=== PATIENT | male | born 1970 | race Caucasian/White ===

== ENCOUNTER 2018-09-04 18:02 | Emergency (ER) | payer OTHER ==
[2018-09-04] MEDS ORDERED: Bacitracin Oint 1 GM U/D Packet TOP ONE (19:40)
--- NOTE | 2018-09-04 20:50 | EDM.PDOC ---
ED HPI GENERAL MEDICAL PROBLEM - General Chief Complaint: Laceration Stated Complaint: CUT LEFT RING FINGER Time Seen by Provider: 09/04/18 19:40 Source of Information: Reports: Patient History Limitations: Reports: No Limitations - History of Present Illness INITIAL COMMENTS - FREE TEXT/NARRATIVE: chief complaint: cut ring finger, left This is a 48 year old male present to ER for care of laceration. He reports lives in [place], he has a cabin on [address], here for the weekend to open cabin. He was washing dishing, cut the end of his left ring finger. The wound was gaping and bleeding, washed wound out with soap and clean water, applied pressure and came to ER. 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) Left Finger-Ring Pain Score (Numeric/FACES): 4 - Related Data Allergies Allergy/AdvReac Type Severity Reaction Status Date / Time No Known Allergies Allergy Verified 09/04/18 19:55 Home Meds: Home Meds Lisinopril [Prinivil] 5 mg PO DAILY 09/04/18 [History] Past Medical History Cardiovascular History: Reports: High Cholesterol, Hypertension Genitourinary History: Reports: Other (See Below) Other Genitourinary History: prostatitist and epididemist Musculoskeletal History: Reports: Arthritis, Fracture, Other (See Below) Other Musculoskeletal History: right shoulder bone spur - Infectious Disease History Infectious Disease History: Reports: Chicken Pox, Influenza - Past Surgical History HEENT Surgical History: Reports: LASIK, Tonsillectomy Social & Family History - Tobacco Use Smoking Status *Q: Never Smoker - Caffeine Use Caffeine Use: Reports: Coffee - Alcohol Use Days Per Week of Alcohol Use: 2 Number of Drinks Per Day: 2 Total Drinks Per Week: 4 - Recreational Drug Use Recreational Drug Use: No - Living Situation & Occupation Living situation: Reports: Occupation: Employed (lives with his and 3 teenage children. 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[employer].) ED ROS GENERAL - Review of Systems Review Of Systems: See Below Constitutional: Reports: Other (left finger pain) Respiratory: Reports: No Symptoms Cardiovascular: Reports: No Symptoms Endocrine: Reports: No Symptoms Skin: Reports: Wound (laceration to left ring finger) Neurological: Reports: No Symptoms Psychiatric: Reports: No Symptoms Hematologic/Lymphatic: Reports: No Symptoms Immunologic: Reports: No Symptoms ED EXAM, SKIN/RASH Exam: See Below Exam Limited By: No Limitations General Appearance: Alert, WD/WN, Anxious Respiratory/Chest: No Respiratory Distress Extremities: Other (laceration noted to left ring finger) Neurological: Alert, Oriented Psychiatric: Normal Affect, Normal Mood, Anxious Skin: Warm, No Rash, Wound/Incision (laceration to palmar side of the left ring finger. gaping wound. scant bleeding noted.) Location, Skin: Palms (left ring finger tip) Characteristics: Linear Associated features: Warmth, Tenderness, Weeping ED SKIN PROCEDURES - Laceration/Wound Repair Left Distal Digit - 4th (Ring) Appearance: Subcutaneous, Linear, Clean Distal NVT: Neuro & Vascular Intact, No Tendon Injury Anesthetic Type: Local Local Anesthesia - Lidocaine (Xylocaine): 1% Plain Local Anesthetic Volume: 2cc Skin Prep: Chlorhexidine (Hibiciens), Saline Saline Irrigation (cc's): 25 Exploration/Debridement/Repair: Wound Explored Closed with: Sutures Suture Size: 4-0 # of Sutures: 9 Suture Type: Prolene, Interrupted, Simple Drain Placement: No Sterile Dressing Applied: Nurse Tetanus Status Addressed: Yes Complications: No Course - Vital Signs Last Recorded V/S: Last Vital Signs Temp 35.1 C L 09/04/18 20:00 Pulse 68 09/04/18 20:00 Resp 16 09/04/18 20:00 BP 160/85 H 09/04/18 20:00 Pulse Ox 96 09/04/18 20:00 - Orders/Labs/Meds Orders: Active Orders 24 hr Category Date Time Status DME for Discharge [COMM] Urgent Oth 09/04/18 20:45 Ordered Meds: Medications Discontinued Medications Generic Name Dose Route Start Last Admin Trade Name Freq PRN Reason Stop Dose Admin Bacitracin 1 dose 09/04/18 19:40 09/04/18 20:48 Bacitracin Oint 1 Gm TOP 09/04/18 19:41 1 dose ONETIME ONE Administration Lidocaine HCl 5 ml 09/04/18 19:40 09/04/18 20:48 Xylocaine-Mpf 1% INJECT 09/04/18 19:41 5 ml ONETIME ONE Administration Departure - Departure Time of Disposition: 20:46 Disposition: Home, Self-Care 01 Condition: Good Clinical Impression: Laceration of finger of left hand Qualifiers: Encounter type: initial encounter Finger: ring finger Damage to nail status: without damage Foreign body presence: without foreign body Qualified Code(s): S61.215A - Laceration without foreign body of left ring finger without damage to nail, initial encounter - Discharge Information *PRESCRIPTION DRUG MONITORING PROGRAM REVIEWED*: No *COPY OF PRESCRIPTION DRUG MONITORING REPORT IN PATIENT ELLA: No Instructions: Sutured Wound Care, [id number] Referrals: PCP,None [Primary Care Provider] - Forms: ED Department Discharge, ED Return to Work/School Form Care Plan Goals: Finger laceration. left hand. ring finger -wear finger splint with activities -Keflex 500mg by mouth two times a day for 7 days -Hydrocodone 5/325 mg by mouth every 3 to 4 hours as needed for pain #8 -may use over the counter Tylenol or Motrin for less severe pain -apply antibiotic ointment to laceration two times a day for 2 to3 days, then keep clean and dry Monitor for signs of infection, increased pain, fever, redness, foul discharge, swelling or not improved return to ER immediately for wound check Sutures removed in 10 days. - Problem List & Annotations (1) Laceration of finger of left hand SNOMED Code(s): 270745235 Code(s): S61.219A - LACERATION W/O FB OF UNSP FINGER W/O DAMAGE TO NAIL, INIT Status: Acute Priority: High Qualifiers: Encounter type: initial encounter Finger: ring finger Damage to nail status: without damage Foreign body presence: without foreign body Qualified Code(s): S61.215A - Laceration without foreign body of left ring finger without damage to nail, initial encounter - Problem List Review Problem List Initiated/Reviewed/Updated: Yes - My Orders Last 24 Hours: My Active Orders 09/04/18 20:45 DME for Discharge [COMM] Urgent - Assessment/Plan Last 24 Hours: My Active Orders 09/04/18 20:45 DME for Discharge [COMM] Urgent Plan: Finger laceration. left hand. ring finger -wear finger splint with activities -Keflex 500mg by mouth two times a day for 7 days -Hydrocodone 5/325 mg by mouth every 3 to 4 hours as needed for pain #8 -may use over the counter Tylenol or Motrin for less severe pain -apply antibiotic ointment to laceration two times a day for 2 to3 days, then keep clean and dry Monitor for signs of infection, increased pain, fever, redness, foul discharge, swelling or not improved return to ER immediately for wound check Sutures removed in 10 days.
== END 2018-09-04 21:09 | disposition home or self-care (01) ==
LOC: JP.ED 18:02
DX: S61.215A Laceration without foreign body of left ring finger without damage to nail, initial encounter (principal); I10 Essential (primary) hypertension; W45.8XXA Other foreign body or object entering through skin, initial encounter; Y93.G1 Activity, food preparation and clean up
CPT/HCPCS: 12001; 99282; J2001

== ENCOUNTER 2018-11-05 15:02 | Emergency (ER) | payer OTHER ==
--- NOTE | 2018-11-05 16:35 | CRLCR ---
INDICATION: Dyspnea TECHNIQUE: Chest 2 views. COMPARISON: None FINDINGS: Cardiovascular and mediastinum: Heart size and vasculature are normal in caliber and appearance. Mediastinum is within normal limits. Lungs and pleural spaces: Lungs are clear. No sign of infiltrate or mass. No sign of pleural effusion. No pneumothorax. Bones and soft tissues: No significant findings. IMPRESSION: No sign of acute disease. Dictated by Corrie Perry MD @ Nov 05 2018 4:32PM Signed by Dr. Corrie Perry @ Nov 05 2018 4:33PM
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
== END 2018-11-05 17:10 | disposition home or self-care (01) ==
LOC: JP.ED 15:02
DX: R07.89 Other chest pain (principal); E78.00 Pure hypercholesterolemia, unspecified; Z79.899 Other long term (current) drug therapy
CPT/HCPCS: 36415; 71046; 80053; 81001; 84484; 85025; 93005; 99285-25

== ENCOUNTER 2019-10-03 12:28 | Emergency (ER) | payer OTHER, BC ==
[2019-10-03] MEDS ORDERED: Bacitracin Oint 1 GM U/D Packet TOP ONE (12:30)
--- NOTE | 2019-10-03 13:08 | EDM.PDOC ---
ED HPI GENERAL MEDICAL PROBLEM - General Chief Complaint: Skin Complaint Stated Complaint: HOOK IN L THUMB Time Seen by Provider: 10/03/19 12:50 Source of Information: Reports: Patient History Limitations: Reports: No Limitations - History of Present Illness INITIAL COMMENTS - FREE TEXT/NARRATIVE: 49-year-old male with a miguelito of a treble hook embedded into the dorsal aspect of his left thumb. No other injury. Tetanus is current. Onset: Sudden Duration: Hour(s): (1 hour ago) Location: Reports: Upper Extremity, Left Associated Symptoms: Reports: No Other Symptoms - Related Data Allergies Allergy/AdvReac Type Severity Reaction Status Date / Time No Known Allergies Allergy Verified 10/03/19 12:37 Home Meds: Home Meds lisinopriL [Prinivil] 5 mg PO DAILY 09/04/18 [History] atorvaSTATin [Lipitor] 1 tab PO DAILY 10/03/19 [History] rOPINIRole [Requip] 1 tab PO DAILY 10/03/19 [History] Past Medical History Cardiovascular History: Reports: High Cholesterol, Hypertension Genitourinary History: Reports: Other (See Below) Other Genitourinary History: prostatitist and epididemist Musculoskeletal History: Reports: Arthritis, Fracture, Other (See Below) Other Musculoskeletal History: right shoulder bone spur Neurological History: Reports: Other (See Below) Other Neuro History: restless leg syndrome - Infectious Disease History Infectious Disease History: Reports: Chicken Pox - Past Surgical History HEENT Surgical History: Reports: LASIK, Tonsillectomy Social & Family History - Tobacco Use Smoking Status *Q: Never Smoker - Caffeine Use Caffeine Use: Reports: Coffee, Soda - Living Situation & Occupation Living situation: Reports: Occupation: Employed (lives with his and 3 teenage children. 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 Patient has 1 miguelito of a large treble hook embedded into the dorsal aspect of the thumb just distal to the MP joint. The miguelito is through and through and exiting the skin. No distal paresthesias) Course - Vital Signs Last Recorded V/S: Last Vital Signs Temp 97.0 F 10/03/19 12:42 Pulse 68 10/03/19 12:42 Resp 14 10/03/19 12:42 BP 154/90 H 10/03/19 12:42 Pulse Ox 97 10/03/19 12:42 - Orders/Labs/Meds Meds: Medications Discontinued Medications Generic Name Dose Route Start Last Admin Trade Name Obi PRN Reason Stop Dose Admin Bacitracin 1 dose 10/03/19 12:30 10/03/19 12:56 Bacitracin Oint 1 Gm TOP 10/03/19 12:31 1 dose ONETIME ONE Administration Lidocaine HCl 5 ml 10/03/19 12:30 10/03/19 12:56 Xylocaine-Mpf 1% INJECT 10/03/19 12:31 5 ml ONETIME ONE Administration - Re-Assessments/Exams Free Text/Narrative Re-Assessment/Exam: 10/03/19 13:06 The area was sterilized with alcohol, infiltrated with 1% lidocaine and the miguelito then cut off and the hook removed in reverse fashion. Saline and alcohol was then used to continually clean the wound, bacitracin was applied and a Band- Aid. Departure - Departure Time of Disposition: 13:14 Disposition: Home, Self-Care 01 Clinical Impression: [place] injury to finger Qualifiers: Encounter type: initial encounter Laterality: left Qualified Code(s): S69.92XA - Unspecified injury of left wrist, hand and finger(s), initial encounter - Discharge Information Instructions: Puncture Wound, [id number] Referrals: PCP,None [Primary Care Provider] - Forms: ED Department Discharge Care Plan Goals: Keep wound covered and clean while healing. Medication 3 times a day for 10 doses, and increase activity as tolerated. Recheck if concerns of infection or not healing satisfactorily. Sepsis Event Note - Evaluation Sepsis Screening Result: No Definite Risk - Focused Exam Vital Signs: Vital Signs Temp Pulse Resp BP Pulse Ox 10/03/19 12:42 97.0 F 68 14 154/90 H 97 Date Exam was Performed: 10/03/19 Time Exam was Performed: 13:23
== END 2019-10-03 13:15 | disposition home or self-care (01) ==
LOC: JP.ED 12:28
DX: S60.352A Superficial foreign body of left thumb, initial encounter (principal); Z79.899 Other long term (current) drug therapy; E78.00 Pure hypercholesterolemia, unspecified; I10 Essential (primary) hypertension; G25.81 Restless legs syndrome; W45.8XXA Other foreign body or object entering through skin, initial encounter
CPT/HCPCS: 99282; J2001

== ENCOUNTER 2022-11-19 12:07 | Emergency (ER) | payer OTHER, BC | END 2022-11-19 14:02 | disposition home or self-care (01) | LOC: JP.ED 12:07 | DX: I80.02 Phlebitis and thrombophlebitis of superficial vessels of left lower extremity (principal); E78.00 Pure hypercholesterolemia, unspecified; I10 Essential (primary) hypertension; Z79.899 Other long term (current) drug therapy; Z87.891 Personal history of nicotine dependence | CPT/HCPCS: 93971-26-LT; 93971-LT; 99283 ==